=== PATIENT | female | born 1935 | race Asian ===

== ENCOUNTER 2021-09-19 17:13 | Emergency (ER) | payer MEDICARE, OTHER ==
[2021-09-19 17:27] VITALS: BP 119/53
[2021-09-19] MEDS ORDERED: ACETAMINOPHEN 325 MG TABLET PO STA (18:04)
--- NOTE | 2021-09-19 18:05 | ED Physician Documentation ---
History of Present Illness - Stated complaint Stated Complaint: FALL/R HIP PX - Chief complaint Chief Complaint: Trauma Ext - History obtained from History obtained from: Patient, Family - History of Present Illness Timing: How many hours ago (1) Pain level max: 5 Pain level now: 4 - Additonal information Additional information: Patient is an 85-year-old female who presents to the emergency department after a ground-level fall today. She was eating lunch at a picnic table with her son when the picnic table started to flip, she landed on her right hip. Complains of pain to the right hip and low back. No numbness or tingling. No loss of bowel or bladder control. She is ambulating as usual with her walker. No head, neck, pain. No loss of consciousness. Patient is not on blood thinners. No lacerations. No bleeding. Worse with movement, better with rest Review of Systems Constitutional: denies: Fever, Chills Nose: denies: Rhinorrhea / runny nose, Congestion Respiratory: denies: Cough GI: denies: Nausea, Vomiting, Diarrhea Skin: denies: Rash Musculoskeletal: denies: Neck pain, Back pain Neurologic: denies: Headache PD PAST MEDICAL HISTORY - Past Medical History Past Medical History: No - Past Surgical History Past Surgical History: No - Allergies Allergies/Adverse Reactions: Allergies Allergy/AdvReac Type Severity Reaction Status Date / Time Penicillins Allergy Unknown Verified 09/19/21 17:28 Sulfa (Sulfonamide Allergy Unknown Verified 09/19/21 17:28 Antibiotics) - Living Situation Living Situation: reports: With family Living Arrangement: reports: At home - Social History Does the pt have substance abuse?: No PD ED PE NORMAL - Vitals Vital signs reviewed: Yes - General General: Alert and oriented X 3, No acute distress - HEENT HEENT: Atraumatic, PERRL, EOMI, Moist mucous membranes - Neck Neck: Supple, no meningeal sign, No bony TTP - Cardiac Cardiac: RRR, Strong equal pulses - Respiratory Respiratory: No respiratory distress, Clear bilaterally - Abdomen Abdomen: Soft, Non tender, Non distended - Back Back: No spinal TTP (No midline tenderness to palpation or percussion.) - Derm Derm: Warm and dry - Extremities Extremities: Other (Mild tenderness over the right greater trochanter. Full range of motion of the hip. Neurovascularly intact.) - Neuro Neuro: Alert and oriented X 3, turning lathe tender 2-12 intact, No motor deficit, No sensory deficit, Normal speech, Other (Normal bilateral lower extremity patellar and ankle jerk reflexes. Normal great toe extension bilaterally. no saddle anesthesia) Eye Opening: Spontaneous Motor: Obeys Commands Verbal: Oriented GCS Score: 15 Results - Vitals Vitals: Vital Signs - 24 hr 09/19/21 17:18 Temperature 36 C L Heart Rate 65 Respiratory 16 Rate Blood Pressure 119/53 L O2 Saturation 99 Oxygen O2 Source Room air - Rads (name of study) Right hip x-ray Radiology: Final report received, EMP read contemporaneously, See rad report Lumbar spine x-ray Radiology: Final report received, EMP read contemporaneously, See rad report PD MEDICAL DECISION MAKING - ED course Complexity details: reviewed results, re-evaluated patient, considered differential, d/w patient, d/w family ED course: No acute findings on x-ray of the right hip or lumbar spine. Ambulating with a walker without difficulty. Tylenol given for pain. No neurological deficits. No evidence of occult fracture. No head injury. No neck pain. Patient and family counseled regarding signs and symptoms for which I believe and urgent re- evaluation would be necessary. Patient with good understanding of and agreement to plan and is comfortable going home at this time This document was made in part using voice recognition software. While efforts are made to proofread this document, sound alike and grammatical errors may occur. Departure - Departure Disposition: 01 Home, Self Care Clinical Impression: Fall from ground level Contusion, hip Qualifiers: Encounter type: initial encounter Laterality: right Qualified Code(s): S70.01XA - Contusion of right hip, initial encounter Condition: Good Instructions: ED Mechanical Fall, ED Contusion Hip Follow-Up: Your,doctor As needed [Other] Comments: Her x-rays do not show any acute abnormalities. You can use Tylenol as needed for pain at home. Continue to use her walker as well. Follow-up with her doctor as needed for further care. Return if she worsens.
--- NOTE | 2021-09-19 18:21 | XRAY Report ---
PROCEDURE: Hip w/Pelvis 2-3V RT INDICATIONS: fall, R hip pain TECHNIQUE: AP pelvis with lateral view(s) of the right hip(s). COMPARISON: None. FINDINGS: Bones: No fractures or dislocations. Pelvic ring appears intact. No suspicious bony lesions. Mode rate bilateral degenerative hip joint space narrowing. Soft tissues: The visualized bowel gas pattern is normal. No suspicious soft tissue calcifications. IMPRESSION: No visualized acute fracture or dislocation. However, occult injury cannot be excluded. Recommend short interval imaging follow-up in 7-10 days as clinically indicated for additional evalua tion. Reviewed by: Lyly Polanco MD on 09/19/2021 6:20 PM PDT Approved by: Lyly Polanco MD on 09/19/2021 6:20 PM PDT Station ID: [id number]
--- NOTE | 2021-09-19 18:23 | XRAY Report ---
PROCEDURE: Lumbar Spine 2 View INDICATIONS: fall, back TECHNIQUE: 2 views of the lumbar spine were acquired. COMPARISON: None. FINDINGS: Bones: [id number] vertebrae are present. There is 2 mm anterolisthesis L4-L5. Moderate to severe disc space narrowing is present at L5-S1 with scattered areas of disc space narrowing througho ut the lumbar spine.. No vertebral body compression fractures. No suspicious bony lesions. Soft tissues: Overlying bowel gas pattern is normal. No suspicious soft tissue calcifications. IMPRESSION: No visualized acute fracture or dislocation. However, occult injury cannot be excluded. Recommend short interval imaging follow-up in 7-10 days as clinically indicated for additional evalua tion. Reviewed by: Lyly Polanco MD on 09/19/2021 6:21 PM PDT Approved by: Lyly Polanco MD on 09/19/2021 6:21 PM PDT Station ID: [id number]
== END 2021-09-19 18:38 | disposition home or self-care (01) ==
LOC: ED 17:13
DX: S70.01XA Contusion of right hip, initial encounter (principal); W07.XXXA Fall from chair, initial encounter
CPT/HCPCS: 72100; 73502; 99282; 99283; A9270